=== PATIENT | male | born 1985 | race Caucasian/White ===

== ENCOUNTER 2021-05-01 18:10 | Emergency (ER) | payer OTHER, SELFPAY ==
--- NOTE | ~2021-05-01 | XR_ITS ---
EXAMINATION: XR CHEST CLINICAL INFORMATION: Shortness of breath COMPARISON: 10/13/2007 TECHNIQUE: Frontal view of the chest was obtained. FINDINGS: No significant abnormality is noted involving the heart, lungs, mediastinum, bony thorax or soft tissues. XR/XR chest 1V IMPRESSION: Unremarkable examination.
[2021-05-01 18:13] VITALS: BP 102/70; PULSE 140; RESP 20; TEMP 36.9; O2SAT 98; BMI 34.4
--- NOTE | 2021-05-01 18:32 | ECG_ITS ---
Test Reason : cp Blood Pressure : / mmHG Vent. Rate : 115 BPM Atrial Rate : 115 BPM P-R Int : 136 ms QRS Dur : 088 ms QT Int : 318 ms P-R-T Axes : 042 042 006 degrees QTc Int : 439 ms Sinus tachycardia T-wave inversion in Inferior leads Abnormal ECG No previous ECGs available Referred By: Generic ED Physician Electronically Signed By:CARLYLE MUÑIZ MD
--- NOTE | 2021-05-01 18:55 | ED_ITS ---
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 Also felt that has difficulty in breathing no cough no fever no chills no abdominal pain had some nausea no vomiting. On arrival patient's heart rate was 140 blood pressure 102/70 temperature 98.4 degrees. Patient does drink alcohol occasionally no substance abuse. Patient does have a significant family history of cardiac history after age 50. Patient never had similar pain in the past Related Data Allergies Allergy/AdvReac Type Severity Reaction Status Date / Time tramadol Allergy Unknown Seizure Verified 05/01/21 20:56 Review of Systems Review of Systems: Yes all other systems are reviewed and are negative [facility] Social History Social History Advance Directives: No Physical Exam Vital Signs: Vital Signs: Last Vital Signs Temp 97.8 F 05/01/21 21:55 Pulse 90 05/01/21 21:55 Resp 16 05/01/21 21:55 BP 124/92 H 05/01/21 21:55 Pulse Ox 98 05/01/21 21:55 Body Mass Index 34.4 Appearance: Alert. Oriented X3. No acute distress. Eyes: No pallor/ icterus ENT: Pharynx normal. Oral Mucosa moist Neck: Normal inspection. Neck supple. CVS: Normal heart rate and rhythm. Pulses normal. No chest wall tenderness Respiratory: No respiratory distress. Equal air entry bilateral, no wheezing/rales/rhonchi Abdomen: Soft and nontender. Bowel sounds are present, no mass palpable, no CVA tenderness Skin: Skin warm and dry. Normal skin color. Normal skin turgor. Extremities: No lower extremity edema. No calf tenderness Neuro: Oriented X 3. No motor deficit. No sensory deficit. Course Reevaluation(s) Reevaluation #1: Patient workup is negative for PE or any ACS normal EKG feeling much better now heart rate less than 100 no chest pain at this time felt better after Pepcid and Maalox will discharge patient home likely from esophageal spasm Time: 21:33 MDM - Chest Pain MDM Narrative Medical decision making narrative: Patient has atypical chest chest discomfort no significant cardiac risk factors nonsmoker very active atypical chest pain with normal EKG with sinus tachycardia. Will do the lab workup to rule out ACS/PE Lab Data Attestation: I reviewed the patient's lab results. Result diagrams: 05/01/21 18:52 05/01/21 18:52 Labs: Lab Results 05/01/21 05/01/21 05/01/21 Range/Units 18:52 18:52 18:52 WBC 4.9 (4.8-10.8) X10*3/uL RBC 5.60 (4.60-5.80) X10*6/uL Hgb 16.5 (14.0-18.0) g/dl Hct 46.8 (42.0-52.0) % MCV 83.6 (80.0-98.0) fL MCH 29.5 (27.0-33.0) pg MCHC 35.3 (31.0-36.0) g/dl RDW 12.3 (11.0-16.0) % Plt Count 209 (160-400) X10*3/uL MPV 10.0 (9.4-12.4) fL Immature Gran % (Auto) 0.2 (0.0-0.4) % Neut % (Auto) 64.2 (45-73) % Lymph % (Auto) 24.8 (20-40) % Runnels % (Auto) 9.4 (2-11) % Eos % (Auto) 1.0 (0-4) % Baso % (Auto) 0.4 (0-2) % Lymph # (Auto) 1.2 (1.2-4.9) X10*3/uL Runnels # (Auto) 0.5 (0.1-1.2) X10*3/uL Eos # (Auto) 0.1 (0.0-0.4) X10*3/uL Baso # (Auto) 0.0 (0.0-0.2) X10*3/uL Abs Immat Gran (auto) 0.01 (0.00-0.03) X10*3/uL Absolute Neuts (auto) 3.2 (2.0-8.3) x10*3/uL Absolute Nucleated RBC 0.000 (0.0-0.012) X10*3/uL Nucleated RBC % (auto) 0.0 (0.0-0.2) /100WBC D-Dimer High Sensitivty NG/ML Sodium 140 (135-145) mmol/L Potassium 3.9 (3.3-5.1) mmol/L Chloride 106 (96-108) mmol/L Carbon Dioxide 26 (22-29) mmol/L Anion Gap 12 (12-20) BUN 10 (9-16) mg/dL Creatinine 1.07 (0.5-1.4) mg/dL Estim Creat Clear Calc 106.3 Estimated GFR > 60 Random Glucose 106 (60-115) mg/dL Calcium 9.5 (8.4-10.2) mg/dL Troponin I High Sens < 3.5 (<3.5-35.0) ng/L 05/01/21 Range/Units 18:52 WBC (4.8-10.8) X10*3/uL RBC (4.60-5.80) X10*6/uL Hgb (14.0-18.0) g/dl Hct (42.0-52.0) % MCV (80.0-98.0) fL MCH (27.0-33.0) pg MCHC (31.0-36.0) g/dl RDW (11.0-16.0) % Plt Count (160-400) X10*3/uL MPV (9.4-12.4) fL Immature Gran % (Auto) (0.0-0.4) % Neut % (Auto) (45-73) % Lymph % (Auto) (20-40) % Runnels % (Auto) (2-11) % Eos % (Auto) (0-4) % Baso % (Auto) (0-2) % Lymph # (Auto) (1.2-4.9) X10*3/uL Runnels # (Auto) (0.1-1.2) X10*3/uL Eos # (Auto) (0.0-0.4) X10*3/uL Baso # (Auto) (0.0-0.2) X10*3/uL Abs Immat Gran (auto) (0.00-0.03) X10*3/uL Absolute Neuts (auto) (2.0-8.3) x10*3/uL Absolute Nucleated RBC (0.0-0.012) X10*3/uL Nucleated RBC % (auto) (0.0-0.2) /100WBC D-Dimer High Sensitivty < 150 NG/ML Sodium (135-145) mmol/L Potassium (3.3-5.1) mmol/L Chloride (96-108) mmol/L Carbon Dioxide (22-29) mmol/L Anion Gap (12-20) BUN (9-16) mg/dL Creatinine (0.5-1.4) mg/dL Estim Creat Clear Calc Estimated GFR Random Glucose (60-115) mg/dL Calcium (8.4-10.2) mg/dL Troponin I High Sens (<3.5-35.0) ng/L ECG Data ECG #1: Attestation: I personally reviewed and interpreted this ECG as follows: Interpretation: Sinus tachycardia with heart rate 111 beats per minute no acute ST T wave changes no acute ischemic changes normal axis Scores Heart Score History: -0- slightly suspicious ECG: -0- normal Age: -0- < or = 45 Risk factory: -0- no risk factors known Troponin: -0- < or = normal limit Score: 0 Risk: 1.7% Discharge Plan Discharge Clinical Impression: Sinus tachycardia, Chest pain Patient Disposition: Home, Self-Care Instructions: Chest Pain (ED), Tachycardia (ED) Additional Instructions: Drink plenty of fluids Follow-up with PCP for further workup including stress test Interventions: ED Discharge Assessment Last Done: 05/01/21 21:58 Discharge Date/Time: 05/01/21 21:58
[2021-05-01 18:57] LABS: MANUAL DIFF FLAG NO
[2021-05-01 19:01] LABS: Basophils Percent Auto 0.4 % (0-2); Eosinophils Absolute Auto 0.1 X10*3/uL (0.0-0.4); Hematocrit 46.8 % (42.0-52.0); Hemoglobin 16.5 g/dl (14.0-18.0); Imm Gran Abs Auto 0.01 X10*3/uL (0.00-0.03); Imm Gran Pct Auto 0.2 % (0.0-0.4); Lymphocytes Absolute Auto 1.2 X10*3/uL (1.2-4.9); Lymphocytes Percent Auto 24.8 % (20-40); Mean Corpuscular HGB Conc 35.3 g/dl (31.0-36.0); Mean Corpuscular Hemoglobin 29.5 pg (27.0-33.0); Mean Corpuscular Volume 83.6 fL (80.0-98.0); Monocytes Absolute Auto 0.5 X10*3/uL (0.1-1.2); Monocytes Percent Auto 9.4 % (2-11); Neutrophils Absolute Auto 3.2 x10*3/uL (2.0-8.3); Neutrophils Percent Auto 64.2 % (45-73); Platelet Count 209 X10*3/uL (160-400); Red Cell Distribution Width 12.3 % (11.0-16.0); White Blood Count 4.9 X10*3/uL (4.8-10.8)
[2021-05-01 19:12] LABS: D Dimer High Sensitivity < 150 NG/ML
[2021-05-01 19:22] LABS: Troponin-I High Sensitivity < 3.5 ng/L (<3.5-35.0)
[2021-05-01 20:33] LABS: Anion Gap 12 (12-20); Blood Urea Nitrogen 10 mg/dL (9-16); Calcium 9.5 mg/dL (8.4-10.2); Carbon Dioxide 26 mmol/L (22-29); Chloride 106 mmol/L (96-108); Creatinine Clr Calc Pharmacy 106.3; Estimated Glomerular Filt Rate > 60; Glucose Random 106 mg/dL (60-115); Potassium 3.9 mmol/L (3.3-5.1); Sodium 140 mmol/L (135-145)
[2021-05-01] MEDS: Famotidine 20 MG TABLET PO (20:57)
[2021-05-01] MEDS: Magnesium Hydrox/Alum Hydrox 30 ML ORAL.SUSP PO (20:57)
[2021-05-01 21:55] VITALS: BP 124/92; PULSE 90; RESP 16; TEMP 36.6; O2SAT 98
== END 2021-05-01 21:58 | disposition home or self-care (01) ==
PROVIDERS: Emergency Provider Internal Medicine; PCP Internal Medicine
DX: R07.9 Chest pain, unspecified (principal); R00.0 Tachycardia, unspecified
CPT/HCPCS: 36415; 71045; 80048; 84484; 85025; 85379; 93005; 99284

== ENCOUNTER 2022-04-27 11:24 | Outpatient (REF) | payer OTHER, SELFPAY ==
[2022-04-27 12:29] LABS: Influenza A PCR NEGATIVE (Negative); Influenza B PCR NEGATIVE (Negative); Resp Syncy Virus RNA Qual PCR NEGATIVE (Negative); SARS COV2 PCR INHOUSE NEGATIVE (Negative)
== END 2022-04-27 11:25 | disposition home or self-care (01) ==
LOC: HO.LNP 11:24
PROVIDERS: Visit Provider Internal Medicine
DX: R43.9 Unspecified disturbances of smell and taste (principal); Z20.822 Contact with and (suspected) exposure to COVID-19
CPT/HCPCS: 0241U